=== PATIENT | female | born 1990 | race Caucasian/White ===

== ENCOUNTER 2023-07-17 15:08 | Outpatient (RCR) | payer BC, SELFPAY ==
--- NOTE | 2023-06-21 13:05 | PCPTNOTE ---
patient called to cancel stating her ankle was swollen and painful
--- NOTE | 2023-07-17 16:07 | OPREHPOC ---
Outpatient Therapy Plan of Care This is a Multidisciplinary Plan of Care that may contain components documented by all disciplines (PT, OT, and ST.) PT Problem 1 PT Problem #1 Knowledge Deficit PT Goal 1 Goal Pt. will be independent with a HEP addressing mobility spiritism and strength Target Visit 2 PT Problem 2 PT Problem #2 Impaired Range of Motion PT Goal 1 Goal Pt. will achieve 10 degrees active right ankle dorsiflexion Pt. will achieve 60 degrees right ankle PF Target Visit 10 PT Problem 3 PT Problem #3 Edema PT Goal 1 Goal Pt. will decrease girth measurements at the right ankle to 49cm with the figure 8 method Target Visit 8 PT Problem 4 PT Problem #4 Impaired Gait PT Goal 1 Goal Pt. will be able to complete uphill walking with equal right and left stance and completion of toe off on the right for duration of 5 minutes without cuing. Target Visit 10 PT Problem 5 PT Problem #5 Impaired Strength PT Goal 1 Goal Pt. will complete 10 single limb heel raises on the right with full arch of motion demonstrating improve strength.
--- NOTE | 2023-07-17 16:09 | PTOPEVAL1 ---
Assessment and note entered by Ben Gold Evaluation Information Assessment Status Evaluation Diagnosis closed fracture of distal end of right tibia Onset 04/27/23 Subjective Information Pt. reports that she was hiking on 04/27/23 and fell . She underwent x-ray which revealed a fx. Pt. reports she was placed in a boot till about the beginning of this month. Pt. reports she was given an order to start at the beginning of the month, but cancelled her appointments due to her concern about her swelling. She has noticed less swelling over the past 2 weeks. She notices pain when walking for periods of about 1 hour. She states that she does a lot of outdoor activities, and enjoys waterskiing. She states that she is currently avoiding these activities due to pain and stiffness in the right ankle. She has not attempted to run, but feels she would be unable to . She states that her goal is to improve her ankle movement and return to light running. Reported Pain Level Pain Score 0: Self Report Assessment PT Clinical Summary Pt. is a 33 year old female who enters the clinic with right ankle pain post fx. She presents with edema, impaired gait, impaired right ankle ROM, weakness and functional decline. Continued skilled PT is indicated in order to improve these areas to allow the pt. to be able to complete all IADL's with improved comfort and efficiency. Plan of Care Interventions Electrical Stimulation,Gait Training,Hot Pack/Cold Pack,Intermittent Compression,Manual Therapy, Neuro Re-education,Patient/Caregiver Educati, Therapeutic Activities,Therapeutic Exercise PT Services Indicated Yes Treatment Frequency and 2x/week x 10 visits Duration These treatments will address the objective and functional deficits as defined above. The patient will be advanced safely and appropriately in order for the patient to progress towards his/her prior level of function. Additional exercises will be introduced and as well as a comprehensive home exercise program upon discharge, if needed, ?to ensure carryover of functional gains achieved in the clinic. This treatment plan has been reviewed and agreement upon by the patient.
--- NOTE | 2023-07-22 16:59 | PCPTNOTE ---
On 07/22/23, the license pending [employer] PRO[employer] RESIDENT, [Lily Emanuel ], provided care and completed [facility] documentation on this patient. I have reviewed the license pending [employer] RESIDENT's documentation and agree with the findings.
--- NOTE | 2023-07-24 17:07 | PCPTNOTE ---
I reviewed the License Pending Therapist's documentation and agree with the findings.
== END 2023-10-15 23:59 | disposition home or self-care (01) ==
LOC: CHSPT 15:08
PROVIDERS: Visit Provider Orthopaedic Surgery
DX: S82.301D Unspecified fracture of lower end of right tibia, subsequent encounter for closed fracture with routine healing (principal)
CPT/HCPCS: 97016; 97110; 97140; 97161